=== PATIENT | female | born 1940 | race Two or more races ===

== ENCOUNTER 2023-04-16 18:23 | Emergency (ER) | payer MEDICARE, BC ==
[~2023-04-16] VITALS: Ht 162.6 cm; Wt 64.0 kg
--- NOTE | 2023-04-16 18:49 | NUR ---
PT AUTHORIZED TO GIVE GRANDDAUGHTER INFO: ARTHUR [phone].
--- NOTE | 2023-04-16 19:30 | NUR ---
PT TAKEN TO CT VIA SERGEIRDIALLO
[2023-04-16 22:16] VITALS: BP 128/86
== END 2023-04-16 22:16 | disposition home or self-care (01) ==
LOC: ER 18:52
DX: S52.501A Unspecified fracture of the lower end of right radius, initial encounter for closed fracture (principal); S00.83XA Contusion of other part of head, initial encounter; M25.562 Pain in left knee; I10 Essential (primary) hypertension; E11.9 Type 2 diabetes mellitus without complications; W01.0XXA Fall on same level from slipping, tripping and stumbling without subsequent striking against object, initial encounter; Y93.89 Activity, other specified; Y92.89 Other specified places as the place of occurrence of the external cause; Y99.8 Other external cause status
CPT/HCPCS: 70450-TC; 73110; 73130-TC; 73564-TC